=== PATIENT | female | born 1960 | race Two or more races ===

== ENCOUNTER 2023-03-10 11:22 | Inpatient (IN) | payer OTHER ==
[~2023-03-10] VITALS: Ht 160 cm; Wt 90.7 kg
[2023-03-10] MEDS ORDERED: TOPROL XL100 M1 (11:28)
[2023-03-10] MEDS ORDERED: EXFORGE 10-3201 EACH (11:28)
[2023-03-10] MEDS ORDERED: FENOFIBRATE150 MG (11:28)
--- NOTE | 2023-03-10 11:42 | NUR ---
PTE ALERTA Y ORIENTADA POR JAIME ESFERAS CON BUEN PATRON RESPIRATORIO. REFIERE QUE FUE A PARRA NOY MEDICA DE GASTRO EN [place] LE COGIERON PARRA PERSION SALIO BAJITA, AL MOMENTO DE TRIAGE PRESENTA 81/74MMHG. SE REALIZA EKG Y SE PRESENTA A MEDICO DE TURNO. PTE VIENE YA CON CANALIZACION EN MANO DERECHA CON .9NSS FULLDRIP. FAMILIAR REFIERE QUE NO QUERIAN ESPERAR POR DAVID AMBULANCIA Y LA TRAJO ASI.
--- NOTE | 2023-03-10 11:43 | NUR ---
PTE ALERTA Y ORIENTADA POR JAIME ESFERAS CON BUEN PATRON RESPIRATORIO. REFIERE QUE FUE A PARRA NOY MEDICA DE GASTRO EN [place] LE COGIERON PARRA PERSION SALIO BAJITA, AL MOMENTO DE TRIAGE PRESENTA 81/47MMHG. SE REALIZA EKG Y SE PRESENTA A MEDICO DE TURNO. PTE VIENE YA CON CANALIZACION EN [place] DERE[place] CON .9NSS FULLDRIP. FAMILIAR REFIERE QUE NO QUERIAN ESPERAR POR DAVID AMBULANCIA Y LA TRAJO ASI.
--- NOTE | 2023-03-10 11:44 | NUR ---
TRIAGE POR CLINT VANN.
--- NOTE | 2023-03-10 12:10 | NUR ---
RN WALLS ORIENTA A PTE SOBRE TRATAMIENTO E INSTRUCCIONES A SEGUIR, RALPH REFIERE ENTENDER. LE COLECTA MUESTRAS LEE ANN ORDEN MEDICA
[2023-03-10] MEDS ORDERED: SINGULAIR10 MG (14:06)
--- NOTE | 2023-03-10 15:30 | NUR ---
SE RECIBE PACIENTE DEL TURNO ANTERIOR LA MISMA SE ENCUENTRA ALERTA Y ORIENTADA X3, SE LE ORIENTA SOBRE CONTINUIDAD DE TRATAMIENTO Y VERBALIZA ENTENDER. SE OBSERVA PACIENTE RECIBIENDO IV FLUIDS LEE ANN ORDEN MEDICA. SE MONITOREAN S/V Y SE DOCUMENTAN EN SISTEMA.
--- NOTE | 2023-03-10 16:32 | NUR ---
SE COLOCA NGT TO LIS EN FOSA NASAL IZQUIERDA LEE ANN ORDEN Y BAJO MEDIDAS ASEPTICAS. SE OBSERVA EGRESO DE 50ML COLOR COFFEE BROWN.
== END 2023-03-15 15:23 | disposition home or self-care (01) | DRG 389 ==
LOC: ER 11:22 → SEC-K 18:21 → SURH 18:21
PROVIDERS: General Practice; Internal Medicine Nephrology; ADMIT Internal Medicine; ATTEND Internal Medicine
PROC: 0D9670Z Drainage of Stomach with Drainage Device, Via Natural or Artificial Opening (ICD-10-PCS; principal; 2023-03-10)
PROC: BW21YZZ Computerized Tomography (CT Scan) of Abdomen and Pelvis using Other Contrast (ICD-10-PCS; 2023-03-10)
DX: K56.600 Partial intestinal obstruction, unspecified as to cause (principal); E87.0 Hyperosmolality and hypernatremia; N17.8 Other acute kidney failure; E86.0 Dehydration; E83.39 Other disorders of phosphorus metabolism; I12.9 Hypertensive chronic kidney disease with stage 1 through stage 4 chronic kidney disease, or unspecified chronic kidney disease; N18.9 Chronic kidney disease, unspecified